=== PATIENT | male | born 1945 | race Two or more races ===

== ENCOUNTER 2022-07-05 22:43 | Inpatient (IN) | payer OTHER ==
[~2022-07-05] VITALS: Ht 152.4 cm; Wt 68.0 kg
[2022-07-05] MEDS ORDERED: SEROQUEL25 MG (22:47)
[2022-07-05] MEDS ORDERED: TOLTERODINE TART1 MG (22:47)
[2022-07-05] MEDS ORDERED: DICLOFENAC35 MG (22:47)
[2022-07-05] MEDS ORDERED: ATENOLOL25 MG (22:47)
[2022-07-05] MEDS ORDERED: COZAAR25 MG (22:48)
--- NOTE | 2022-07-05 22:48 | NUR ---
PTE LLEGA EN ROSALBA POR AMBULANCIA, EMT REFIERE QUE FAMILIARES DE PTE LO ENCONTRARON A LAS 8AM EN GARCIA CUARTO LETARGICO, LO DEJARON HASTA AHORA EN LA NOCHE QUE SE PREOCUPARON QUE PTE NO SE MOVIA O RESPONDIA A DOLOR. SE SADI S/V Y SE PRESENTA A SOBRE PTE, EL MISMO REFIERE UBICARLO EN AREA DE OBSERVACION. AL MOMENTO DE TRIAGE NO ESTA PRESENTE FAMILIARES. SE OBSERVA ANISOCORIA.
--- NOTE | 2022-07-05 23:59 | NUR ---
SE ORIENTA FAMILIARES SOBRE TX A SEGUIR, EL CUAL REFIEREN ENTENDER. SE COLECTAN MUESTRAS UTILIZANDO MEDIDAS ASEPTICAS. SE ADM. MEDICAMENTOS JULIA ORDEN MEDICA.
--- NOTE | 2022-07-06 07:29 | NUR ---
SE RECIBE PTE EN CAMA CON BARANDAS ELEVADAS POR GARCIA SEGURIDAD ALERTA ORIENTADO EN PERSONA.PENDIENTE A CONSULTA MEDICA.SE FLOYD S/V Y SE DOCUMENTAN.
[2022-07-14] MEDS ORDERED: DONEPEZIL HCL10 MG (11:43)
== END 2022-09-04 23:32 | disposition home or self-care (01) | DRG 304 ==
LOC: ER 22:43 → SEC-K 07-06 11:19 → MEDI 07-06 11:19
PROVIDERS: ADMIT Internal Medicine; ATTEND Internal Medicine
PROC: BW28ZZZ Computerized Tomography (CT Scan) of Head (ICD-10-PCS; 2022-07-05)
PROC: 4A12X4Z Monitoring of Cardiac Electrical Activity, External Approach (ICD-10-PCS; principal; 2022-07-06)
PROC: BW24ZZZ Computerized Tomography (CT Scan) of Chest and Abdomen (ICD-10-PCS; 2022-07-06)
PROC: B24BYZZ Ultrasonography of Heart with Aorta using Other Contrast (ICD-10-PCS; 2022-07-06)
PROC: 5A0955A Assistance with Respiratory Ventilation, Greater than 96 Consecutive Hours, High Flow/Velocity Cannula (ICD-10-PCS; 2022-07-12)
PROC: BW2410Z Computerized Tomography (CT Scan) of Chest and Abdomen using Low Osmolar Contrast, Unenhanced and Enhanced (ICD-10-PCS; 2022-07-14)
PROC: B030Y0Z Magnetic Resonance Imaging (MRI) of Brain using Other Contrast, Unenhanced and Enhanced (ICD-10-PCS; 2022-07-17)
PROC: 30233N1 Transfusion of Nonautologous Red Blood Cells into Peripheral Vein, Percutaneous Approach (ICD-10-PCS; 2022-07-19)
PROC: 0W9B3ZZ Drainage of Left Pleural Cavity, Percutaneous Approach (ICD-10-PCS; 2022-07-22)
PROC: 30233R1 Transfusion of Nonautologous Platelets into Peripheral Vein, Percutaneous Approach (ICD-10-PCS; 2022-08-01)
PROC: 0DH63UZ Insertion of Feeding Device into Stomach, Percutaneous Approach (ICD-10-PCS; 2022-08-28)
DX: I16.1 Hypertensive emergency (principal); J69.0 Pneumonitis due to inhalation of food and vomit; E46 Unspecified protein-calorie malnutrition; J90 Pleural effusion, not elsewhere classified; N39.0 Urinary tract infection, site not specified; F05 Delirium due to known physiological condition; I50.32 Chronic diastolic (congestive) heart failure; I24.9 Acute ischemic heart disease, unspecified; I11.0 Hypertensive heart disease with heart failure; I48.91 Unspecified atrial fibrillation; D64.89 Other specified anemias; R63.30 Feeding difficulties, unspecified; R13.19 Other dysphagia; B95.2 Enterococcus as the cause of diseases classified elsewhere; G30.8 Other Alzheimer's disease; F02.80 Dementia in other diseases classified elsewhere, unspecified severity, without behavioral disturbance, psychotic disturbance, mood disturbance, and anxiety; Z74.1 Need for assistance with personal care; Z74.01 Bed confinement status; Z63.8 Other specified problems related to primary support group; Z75.8 Other problems related to medical facilities and other health care
CPT/HCPCS: 70544

== ENCOUNTER 2022-10-01 22:21 | Inpatient (IN) | payer OTHER ==
[~2022-10-01] VITALS: Ht 152.4 cm; Wt 129.7 kg
[~2022-10-01 22:21] MED LIST: ATENOLOL25 MG; COZAAR25 MG; DICLOFENAC35 MG; DONEPEZIL HCL10 MG; SEROQUEL25 MG; TOLTERODINE TART1 MG
[2022-10-01] MEDS ORDERED: TOPROL XL50 M1 PO (22:45)
[2022-10-01] MEDS ORDERED: PANTOPRAZOLE SO40 M2 PO (22:46)
[2022-10-01] MEDS ORDERED: AMLODIPINE-OLM1 EAC1 PO (22:47)
[2022-10-01] MEDS ORDERED: CHILDREN'S ASPI81 MG PO (22:48)
[2022-10-05] MEDS ORDERED: AMLODIPINE BESY10 MG (08:45)
[2022-10-05] MEDS ORDERED: VITAMIN B-1100 MG (08:46)
== END 2022-10-24 23:19 | disposition expired | DRG 189 ==
LOC: ER 22:21 → MEDJ 10-02 00:48
PROVIDERS: Surgery; ADMIT Internal Medicine; ATTEND Internal Medicine
PROC: 0DH63UZ Insertion of Feeding Device into Stomach, Percutaneous Approach (ICD-10-PCS; principal; 2022-10-08 11:00)
PROC: 0HB6XZZ Excision of Back Skin, External Approach (ICD-10-PCS; 2022-10-12)
PROC: 02HV33Z Insertion of Infusion Device into Superior Vena Cava, Percutaneous Approach (ICD-10-PCS; 2022-10-19)
PROC: 0HB6XZZ Excision of Back Skin, External Approach (ICD-10-PCS; 2022-10-21)
PROC: 0DH63UZ Insertion of Feeding Device into Stomach, Percutaneous Approach (ICD-10-PCS; 2022-10-22)
PROC: 4A12X4Z Monitoring of Cardiac Electrical Activity, External Approach (ICD-10-PCS; 2022-10-23)
PROC: 5A09357 Assistance with Respiratory Ventilation, Less than 24 Consecutive Hours, Continuous Positive Airway Pressure (ICD-10-PCS; 2022-10-24)
DX: J96.01 Acute respiratory failure with hypoxia (principal); R65.21 Severe sepsis with septic shock; K94.23 Gastrostomy malfunction; E87.0 Hyperosmolality and hypernatremia; N39.0 Urinary tract infection, site not specified; Z16.12 Extended spectrum beta lactamase (ESBL) resistance; J90 Pleural effusion, not elsewhere classified; E87.1 Hypo-osmolality and hyponatremia; N17.8 Other acute kidney failure; L97.429 Non-pressure chronic ulcer of left heel and midfoot with unspecified severity; L97.419 Non-pressure chronic ulcer of right heel and midfoot with unspecified severity; B96.1 Klebsiella pneumoniae [K. pneumoniae] as the cause of diseases classified elsewhere; B96.89 Other specified bacterial agents as the cause of diseases classified elsewhere; G30.9 Alzheimer's disease, unspecified; F02.80 Dementia in other diseases classified elsewhere, unspecified severity, without behavioral disturbance, psychotic disturbance, mood disturbance, and anxiety; R13.19 Other dysphagia; I10 Essential (primary) hypertension; Z74.01 Bed confinement status; R31.0 Gross hematuria; E86.0 Dehydration; D64.9 Anemia, unspecified; L89.159 Pressure ulcer of sacral region, unspecified stage; L08.9 Local infection of the skin and subcutaneous tissue, unspecified; B96.20 Unspecified Escherichia coli [E. coli] as the cause of diseases classified elsewhere; B95.2 Enterococcus as the cause of diseases classified elsewhere; E11.65 Type 2 diabetes mellitus with hyperglycemia; Z79.4 Long term (current) use of insulin